=== PATIENT | male | born 1965 | race Caucasian/White ===

== ENCOUNTER 2023-09-13 14:31 | Outpatient (CLI) | payer BC, SELFPAY ==
[2023-09-13 14:55] LABS: Basophils Percent Auto 0.4 % (0.2-1.2); Eosinophils Percent Auto 0.5 % (0-4.4); Hematocrit 46.8 % (42.0-52.0); Hemoglobin 16.2 g/dL (14.0-18.0); Immature Granulocyte Absolute 0.03 K/mm3 (0.00-0.031); Immature Granulocyte Percent A 0.4 % (0-0.5); Immature Platelet Fraction Pct 10.2 % (0.9-11.2); Lymphocytes Absolute Auto 1.36 K/mm3 (0.9-3.2); Mean Corpuscular HGB Conc 34.6 g/dl (32-36); Mean Corpuscular Hemoglobin 32.5 pg (26-34); Mean Corpuscular Volume 93.8 fl (80-100); Mean Platelet Volume 10.9 fl (7.4-10.4); Monocytes Absolute Auto 0.5 K/mm3 (0.1-0.6); Monocytes Percent Auto 6.3 % (2.6-8.5); Neutrophils Percent Auto 75.4 % (45.5-73.1); Platelet Count Result 121 k/mm3 (150-375); Red Blood Count 4.99 M/mm3 (4.6-6.20); Red Cell Distribution Width 13.4 % (11.5-14.5)
[2023-09-13 16:49] LABS: Iron 142 ug/dL (49-181)
[2023-09-13 16:50] LABS: Alanine Aminotransferase 36 U/L (6-50); Albumin Level 4.6 g/dL (3.5-5.1); Alkaline Phosphatase 56 U/L (38-126); Anion Gap 6 mmol/L (8-16); Aspartate Amino Transferase 38 U/L (17-59); Bilirubin,Total 0.9 mg/dL (0.2-1.3); Blood Urea Nitrogen 14 mg/dL (9-20); Calcium 9.2 mg/dL (8.4-10.2); Carbon Dioxide 31 mmol/L (22-30); Chloride 102 mmol/L (98-107); Estimated Glomerular Filt Rate > 60; Glucose 77 mg/dL (65-110); Sodium 139 mmol/L (137-145)
[2023-09-13 16:59] LABS: Percent Iron Saturation 46 % (20-50)
[2023-09-16 23:22] LABS: Platelet Antibody, Direct NEGATIVE (NEGATIVE)
[2023-09-17 17:43] LABS: Methylmalonic Acid 203 nmol/L (87-318)
[2023-09-20 14:53] LABS: Soluble Transferrin Receptor 1.25 mg/L (0.76-1.76)
== END 2023-09-13 14:32 | disposition home or self-care (01) ==
PROVIDERS: PCP Family Medicine; Visit Provider Internal Medicine Hematology & Oncology
DX: D69.59 Other secondary thrombocytopenia (principal); D64.9 Anemia, unspecified
CPT/HCPCS: 36415; 80053; 82728; 83540; 83550; 83921; 84238; 85025; 85055; 86023

== ENCOUNTER 2023-09-21 09:23 | Outpatient (CLI) | payer BC, SELFPAY ==
--- NOTE | ~2023-09-21 | US_ITS ---
Abdominal Sonogram: Real-time sonographic imaging of the abdomen was performed. Clinical History: Secondary thrombocytopenia Findings: The liver appears echogenic, with no evidence of mass lesion or bile duct dilatation. Main portal vein demonstrates normal direction of flow. The spleen is upper limits of normal in size with out evidence of focal lesion. The gallbladder is well distended, and appears normal with no evidence of gallstone or wall thickening. The common bile duct measures 5 mm. The visualized pancreas, aorta , and IVC are unremarkable. The right kidney measures 10.5 cm in length and the left kidney measures 12.0 cm. There is no hydronephrosis or renal calculus. Impression: Diffuse fatty infiltration of liver. Reviewed, dictated and finalized at location M. [employer] Impression: Diffuse fatty infiltration of liver.
== END 2023-09-21 09:24 ==
LOC: MICIMG 09:24
PROVIDERS: PCP Internal Medicine Hematology & Oncology; Visit Provider Internal Medicine Hematology & Oncology
DX: D69.59 Other secondary thrombocytopenia (principal); K76.0 Fatty (change of) liver, not elsewhere classified
CPT/HCPCS: 76700

== ENCOUNTER 2024-02-21 20:12 | Emergency (ER) | payer BC, SELFPAY ==
--- NOTE | ~2024-02-21 | XR_ITS ---
EXAM: XR hand RT min 3V DATE: 02/21/2024 21:26 HISTORY: dog bites, r/o fb . COMPARISON: None available. FINDINGS: Normal mineralization. No acute fracture or dislocation. Ossific fragment at the dorsum of the wrist, may represent an old triquetral fracture fragment. No lytic or blastic lesion. Joint spac es are maintained. No erosion or periosteal change. Soft tissues within normal limits. IMPRESSION: No acute osseous finding in the right hand. No radiopaque foreign body detected. Reviewed, dictated and finalized at location K. IMPRESSION: No acute osseous finding in the right hand. No radiopaque foreign b marshall detected.
[2024-02-21 20:14] VITALS: BP 124/85; PULSE 82; RESP 20; TEMP 37.6; O2SAT 97
[2024-02-21] MEDS: ONDANSETRON INJ 4 MG/2 ML VIAL IV PUSH (21:34)
[2024-02-21] MEDS: MORPHINE SULFATE (*CRX) 4 MG/ML INJ IV PUSH (21:35)
[2024-02-21] MEDS: AMPICILLIN SULB 3 GM/NS 100 ML 3 GM/100 ML VIAL IVPB (21:39)
--- NOTE | 2024-02-21 21:53 | ED.ANIMALBIT ---
HPI - Animal Bite General Chief Complaint: Animal Bite Stated Complaint: dog bite Time Seen by Provider: 02/21/24 20:15 Source: patient Mode of arrival: ambulatory Limitations: no limitations History of Present Illness HPI narrative: Patient is a 58 y/o male who presents to the ED with c/o dog bites to his hands. Patient reports he attempted to break up a fight between his to house dogs when he was bit by vault dogs on both hands. He sustained several puncture wounds to both hands. Denies any other injuries. Tetanus is up-to-date. Dogs are up-to-date on their vaccinations. Denies numbness. Related Data Allergies Allergy/AdvReac Type Severity Reaction Status Date / Time No Known Allergies Allergy Verified 02/21/24 20:23 Review of Systems Review of Systems: CONSTITUTIONAL: Denies fever, chills, or sweats. MUSCULOSKELETAL: See HPI NEUROLOGIC: Denies headache, dizziness, numbness, or weakness. All systems reviewed & are unremarkable except as noted in HPI and below PMFSH Past Medical History Medical History CLAUDE (obstructive sleep apnea) Social History Social History Smoking status: Never smoker Alcohol intake: current Alcohol use details: occasionally Substance use: never Substance use type: does not use Lack of Transportation: No Lack of Food: Never True Current Housing: I Have Housing Concerned About Future Housing: No Difficulty Paying Gas/Electric Bills: No Difficulty Paying for Meds: No Currently Unemployed: No Education: Master's Degree or Higher Difficulty w/ Childcare or Family Care: No Exam Narrative: GENERAL: Well appearing, well-nourished, non-toxic, in no acute distress. HEAD: Normocephalic, atraumatic. RESPIRATORY: Airway patent, respirations nonlabored. CARDIOVASCULAR: Regular rate and rhythm. Radial pulses intact bilaterally. MUSCULOSKELETAL: Moves all extremities. No gross deformities. Full range of motion of bilateral hands and fingers. Sensation intact throughout bilateral hands and fingers. SKIN: Warm, dry, normal color. Numerous small puncture wounds to bilateral dorsal hands. A few larger wounds to right hand /wrist. Minimal active bleeding from wounds. No FBs noted. NEURO: A&O X3. Speech clear. PSYCHIATRIC: Appropriate mood and affect. Normal interaction. Course Vital Signs Vital signs: Vital Signs Temperature 99.7 F H 02/21/24 20:14 Pulse Rate 82 02/21/24 20:14 Respiratory Rate 20 02/21/24 20:14 Blood Pressure 124/85 02/21/24 20:14 Pulse Oximetry 97 02/21/24 20:14 Oxygen Delivery Room Air 02/21/24 20:14 Temperature 99.7 F H 02/21/24 20:14 Pulse Rate 67 02/21/24 23:30 Respiratory Rate 18 02/21/24 23:30 Blood Pressure 135/76 02/21/24 23:30 Pulse Oximetry 99 02/21/24 23:30 Oxygen Delivery Room Air 02/21/24 20:14 Procedures Laceration Laceration 1: Date: 02/21/24 Time: 22:50 Site: hand Side (If applicable): left and right Description: irregular Depth: simple, single layer Local Anesthetic: lidocaine 1% Amount of anesthesia used (mL): 8 (total for both hands) Pre-repair: wound explored, irrigated and irrigated extensively ====== Skin Level ====== Skin layer closed with: nylon Number of sutures: 8 (8 sutures total on several small puncture wounds on bilateral hands) Technique: simple, interrupted ====== Subcutaneous Layer ====== ====== Muscle Layer ====== ====== Tendon Layer ====== MDM - Animal Bite MDM Narrative Medical decision making narrative: Patient presented to ED with dog bites to bilateral hands. Neurovascularly intact. Dogs up-to-date on vaccines. Tetanus up-to-date. Patient given dose of Unasyn in the ED. Wounds were thoroughly irrigated by ED nurse and
[2024-02-21] MEDS: KETOROLAC 30 MG/ML VIAL (*BKC) IV PUSH (23:19)
[2024-02-21] MEDS: HYDROcodone/acetaminophen (*CRX) 5-325 MG TABLET 1 TAB PO (23:19)
[2024-02-21 23:30] VITALS: BP 135/76; PULSE 67; RESP 18; O2SAT 99
== END 2024-02-21 23:31 | disposition home or self-care (01) ==
PROVIDERS: Emergency Provider Physician Assistant; PCP Internal Medicine Hematology & Oncology
DX: S61.452A Open bite of left hand, initial encounter (principal); S61.451A Open bite of right hand, initial encounter; S61.051A Open bite of right thumb without damage to nail, initial encounter; G47.33 Obstructive sleep apnea (adult) (pediatric); W54.0XXA Bitten by dog, initial encounter
CPT/HCPCS: 12001; 73130; 96365; 96375; 99284; A9270; J0295; J1885; J2270; J2405

== ENCOUNTER 2024-03-29 10:02 | Outpatient (CLI) | payer BC, SELFPAY ==
[2024-03-29 10:22] LABS: Blood Urea Nitrogen 15 mg/dL (8-26); Carbon Dioxide 27 mmol/L (22-30); Chloride 101 mmol/L (98-109); Estimated Glomerular Filt Rate > 60; Glucose 89 mg/dL (70-105); Potassium 4.3 mmol/L (3.5-4.9); Sodium 140 mmol/L (138-146)
[2024-03-29 10:22] LABS: Basophils Percent Auto 0.5 % (0.2-1.2); Eosinophils Absolute Auto 0.1 K/mm3 (0-0.3); Eosinophils Percent Auto 1.1 % (0-4.4); Hematocrit 48.5 % (42.0-52.0); Hemoglobin 16.3 g/dL (14.0-18.0); Immature Granulocyte Absolute 0.06 K/mm3 (0.00-0.031); Immature Granulocyte Percent A 0.7 % (0-0.5); Immature Platelet Fraction Pct 8.7 % (0.9-11.2); Lymphocytes Absolute Auto 1.62 K/mm3 (0.9-3.2); Lymphocytes Percent Auto 19.4 % (18.3-44.2); Mean Corpuscular HGB Conc 33.6 g/dl (32-36); Mean Corpuscular Volume 95.1 fl (80-100); Mean Platelet Volume 10.5 fl (7.4-10.4); Monocytes Absolute Auto 0.5 K/mm3 (0.1-0.6); Monocytes Percent Auto 6.5 % (2.6-8.5); Neutrophils Percent Auto 71.8 % (45.5-73.1); Platelet Count Result 128 k/mm3 (150-375); Red Cell Distribution Width 13.4 % (11.5-14.5); White Blood Count 8.4 K/mm3 (4.5-10.0)
[2024-03-29 11:10] LABS: Anion Gap 6 mmol/L (4-12); Blood Urea Nitrogen 16 mg/dL (9-20); Carbon Dioxide 29 mmol/L (22-30); Chloride 103 mmol/L (98-107); Potassium 4.3 mmol/L (3.4-5.0); Sodium 138 mmol/L (137-145)
[2024-03-29 11:11] LABS: Alanine Aminotransferase 69 U/L (6-50); Albumin Level 4.9 g/dL (3.5-5.1); Alkaline Phosphatase 62 U/L (38-126); Aspartate Amino Transferase 63 U/L (17-59); Bilirubin,Total 1.5 mg/dL (0.2-1.3); Calcium 9.2 mg/dL (8.4-10.2); Estimated Glomerular Filt Rate > 60; Glucose 86 mg/dL (65-110)
== END 2024-03-29 10:03 | disposition home or self-care (01) ==
LOC: ANHLAB 10:05
PROVIDERS: PCP Family Medicine; Visit Provider Internal Medicine Hematology & Oncology
DX: D64.9 Anemia, unspecified (principal)
CPT/HCPCS: 36415; 80047; 80053; 85025; 85055